=== PATIENT | female | born 1970 | race Caucasian/White ===

== ENCOUNTER 2018-03-15 15:21 | Emergency (ER) | payer BC ==
[~2018-03-15 15:21] MED LIST: DOCU-116 PO; FAMO-136 PO; IRON150C PO; MEDR10TA PO
[2018-03-15] MEDS ORDERED: TETANUS/DIPHTHERIA TOXOID [ADULT] 0.5 ML VIAL IM ONE (16:32)
== END 2018-03-15 16:48 | disposition home or self-care (01) ==
LOC: EDH 15:21
DX: S61.432A Puncture wound without foreign body of left hand, initial encounter (principal); Z98.890 Other specified postprocedural states; W20.8XXA Other cause of strike by thrown, projected or falling object, initial encounter; Y93.89 Activity, other specified; Y92.89 Other specified places as the place of occurrence of the external cause; Y99.8 Other external cause status
CPT/HCPCS: 73130; 90471; 90714